=== PATIENT | male | born 1940 | race Caucasian/White ===

== ENCOUNTER → 2016-09-01 | Outpatient (CLI) | payer MEDICARE, OTHER ==
[~2016-09-01] MED LIST: ASPI-586 PO; CIPR500S2 PO; HYDR-3874 PO; LEVO200T PO; MULT-35 PO; OMEP20TA33 PO; PHEN-640 PO; TAMS0.4C98 PO; TRIA1TAB5 PO
--- NOTE | 2016-09-01 16:19 | Diagnostic Imaging Report ---
INDICATION: History of left ureteral stone, symptoms have resolved. FINDINGS: No opaque calculus along the expected course of the left ureter is found. A calcific like opacity projects over the left 12th rib measuring 4.6 mm which may be a parenchymal kidney stone. IMPRESSION: There is a questionable stone within the left kidney. No radiopaque ureteral stone or bowel obstruction. Dictated by: Dictated on workstation # [id number]
== END ==
LOC: RAD 14:22
PROVIDERS: ATTEND Urology
DX: N20.1 Calculus of ureter (principal)
CPT/HCPCS: 74000

== ENCOUNTER 2016-09-03 10:43 | Outpatient (CLI) | payer MEDICARE, OTHER ==
[~2016-09-03] VITALS: Ht 188 cm; Wt 95.3 kg
[2016-09-03] MEDS ORDERED: MULT-35 PO (10:53)
[2016-09-03] MEDS ORDERED: OMEP20TA33 PO (10:53)
[2016-09-03] MEDS ORDERED: ASPI-586 PO (10:53)
[2016-09-03] MEDS ORDERED: TRIA1TAB5 PO (10:53)
[2016-09-03] MEDS ORDERED: TAMS0.4C98 PO (10:53)
[2016-09-03] MEDS ORDERED: LEVO200T PO (10:53)
== END 2016-09-03 11:05 ==
LOC: PREOP 10:43
PROVIDERS: ATTEND Urology
DX: Z01.818 Encounter for other preprocedural examination (principal); N20.1 Calculus of ureter

== ENCOUNTER 2016-09-08 08:45 | Day surgery (SDC) | payer MEDICARE, OTHER ==
[~2016-09-08] VITALS: Ht 188 cm; Wt 95.3 kg
[~2016-09-08 08:45] MED LIST changes: -CIPR500S2 PO; -HYDR-3874 PO; -PHEN-640 PO
[2016-09-08] MEDS ORDERED: cefTRIAXone 1 GM (ROCEPHIN) VIAL ONE (08:52)
[2016-09-08] MEDS ORDERED: NS (IVPB) 50 ML ONE (08:53)
--- NOTE | 2016-09-08 09:19 | Diagnostic Imaging Report ---
EXAMINATION: KUB. INDICATION: Left ureteric stone. COMPARISON: 09/01/16. FINDINGS: There is a left calcification seen measuring 5 mm which could be within the left kidney. No definitive ureteric stone or right kidney stone seen. No bladder stone is identified. IMPRESSION: 5 mm left flank calcification could be a left kidney stone. Dictated by: Dictated on workstation # [id number]
[2016-09-08] MEDS ORDERED: CATHETER FLUSH 10 ML SYR IV PRN (09:30)
[2016-09-08] MEDS ORDERED: cefTRIAXone 1 GM/NS 50 ML IVPB IV ONE ×2 (09:30)
[2016-09-08 09:46] VITALS: BP 112/72
[2016-09-08] MEDS ORDERED: FAMOTIDINE 20MG/2ML IV (PEPCID) ONE (09:55)
[2016-09-08] MEDS ORDERED: fentaNYL INJECTION 100 MCG/2 ML AMP ONE (09:56)
[2016-09-08] MEDS ORDERED: ONDANSETRON 4 MG/2 ML (SDV) Z0FRAN ONE (09:57)
[2016-09-08] MEDS ORDERED: LIDOCAINE JELLY 2% (XYLOCAINE) 5 ML TUBE ONE (09:57)
[2016-09-08] MEDS ORDERED: proPOfol 200 MG/20 ML (DIPRIVAN) VIAL IV ONE ×2 (09:57→11:08)
[2016-09-08] MEDS ORDERED: ROCURONIUM 50 MG/5 ML (ZEMURON) VIAL IV ONE (09:57)
[2016-09-08] MEDS ORDERED: MIDAZOLAM 2 MG/2 ML (VERSED) VIAL ONE (09:57)
[2016-09-08] MEDS ORDERED: LIDOCAINE PF 2% 10 ML (XYLOCAINE) AMP ONE (09:57)
[2016-09-08] MEDS ORDERED: SEVOFLURANE (ULTANE) 15 ML INHAL SOLN ONE ×3 (09:57→11:09)
[2016-09-08] MEDS ORDERED: LACTATED RINGERS 1,000 ML IV ONE ×2 (09:57→11:09)
--- NOTE | 2016-09-08 10:00 | Progress Note-Pre Operative ---
Pre-Operative Progress Note H&P Reviewed The H&P was reviewed, patient examined and no changes noted. Date H&P Reviewed: September 08, 2016 Time H&P Reviewed: 10:00 Pre-Operative Diagnosis: LT URETERAL STONE RICK DELCID MD September 08, 2016 10:00 am
--- NOTE | 2016-09-08 10:01 | Progress Note-Post Operative ---
Post-Operative Progess Note Surgeon (s)/Production Broaching Machine Operator (s) Surgeon RICK DELCID MD Production Broaching Machine Operator: N/A Pre-Operative Diagnosis LT URETERAL STONE Post-Operative Diagnosis SAME Procedure & Operative Findings Date of Procedure 09/08/16 Procedure Preformed/Findings CYSTO, LT URETEROSCOPY, LT RETROGRADE UROGRAM Anesthesia Type GENERAL Estimated Blood Loss Estimated blood loss (mL): N/A Specimens/Packing Specimens Removed N/A Packing: N/A RICK DELCID MD September 08, 2016 10:01 am
--- NOTE | 2016-09-08 10:02 | Discharge Inst-Urology ---
Discharge Inst-Urology Discharge Medications New, Converted, or Re-newed RX: RX on Chart Patient Instructions/Follow Up Plan Please make appointment to been seen in office in 2 weeks. Increase oral fluids for 48 hours and then as needed. Diet and Activity as tolerated. If questions or concerns contact your physician Or seek help at emergency department. RICK DELCID MD September 08, 2016 10:02 am
[2016-09-08] MEDS: LACTATED RINGERS 1,000 ML IV PRN ×2 (10:03→11:47)
[2016-09-08] MEDS ORDERED: FAMOTIDINE 20MG/2ML IV (PEPCID) IV ONE (10:15)
--- NOTE | 2016-09-08 11:41 | OPERATIVE REPORT ---
DATE OF SERVICE: 09/08/2016 PREOPERATIVE DIAGNOSIS: Left ureteral stone. POSTOPERATIVE DIAGNOSES: 1. Left ureteral stone. 2. BPH. OPERATIONS PERFORMED: Cystoscopy, left ureteroscopy, attempted left ureteral catheterization and stenting, left retrograde urogram. SURGEON: Lizandro ANESTHESIA: General. COMPLICATIONS: None. PROCEDURE: Under satisfactory general anesthesia and the patient in lithotomy position, genitalia was prepped and draped in the usual sterile fashion. Cystoscope was introduced under direct vision. The anterior urethra was normal. The prostate revealed trilobar enlargement with a significant medial lobe projecting intravesically, causing the ureter to be pushed upward and laterally. There were trabeculations of the wall. No foreign body, bladder tumor or stone visualized. Using the foroblique lens, I attempted to dilate the left ureteral orifice and portion, but was unsuccessful. I attempted to pass a urethral cath and stent, I was unsuccessful. 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 I went ahead and put a cooled-tip urethral catheter at the orifice of the ureter, injected contrast. There was no filling defect and the contrast filled all the way to the kidney with good emptying of the system after removing the urethral catheter. There was no filling defect at all. 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 I, again, injected contrast with the same picture as before, meaning no filling defect and complete emptying of the system. I went ahead and inserted the cystoscope. There was some bloody urine. I elected to leave a 16-Slovak Ibarra catheter draining the bladder and decide later on on its removal. Job ID: [id number] DocumentID: [id number] Dictated Date: 09/08/2016 11:21:22 Sand Miller Date: 09/08/2016 11:41:17 Dictated By: RICK DELCID MD
[2016-09-08] MEDS ORDERED: ONDANSETRON 4 MG/2 ML (SDV) Z0FRAN IVP PRN (11:45)
[2016-09-08] MEDS ORDERED: MEPERIDINE (DEMEROL) INJ 50 MG/ML IVP PRN (11:45)
[2016-09-08] MEDS: morphine INJ 10 MG/ML 1ML (SYR OR VIAL) IVP PRN ×2 (11:46→11:58)
[2016-09-08 12:30] VITALS: BP 126/75
[2016-09-08] MEDS ORDERED: HYDR-3874 PO (12:58)
[2016-09-08] MEDS ORDERED: CIPR500S2 PO (12:58)
[2016-09-08] MEDS ORDERED: PHEN-640 PO (12:58)
[2016-09-08 13:00] VITALS: BP 122/77
[2016-09-08 13:30] VITALS: BP 121/75
[2016-09-08 14:05] VITALS: BP 121/75
== END 2016-09-08 14:05 | disposition home or self-care (01) ==
LOC: SDC 08:45
PROVIDERS: ATTEND Urology
DX: N20.1 Calculus of ureter (principal); N40.0 Benign prostatic hyperplasia without lower urinary tract symptoms; Q62.8 Other congenital malformations of ureter
CPT/HCPCS: 74000; 87081

== ENCOUNTER → 2017-08-05 | Outpatient (RCR) | payer MEDICARE, OTHER ==
[~2017-08-05] MED LIST changes: +CIPR500S2 PO; +HYDR-3870 PO; +PHEN-640 PO
== END | disposition home or self-care (01) ==
LOC: ONC 05-07 08:39
PROVIDERS: ATTEND Radiology Radiation Oncology
DX: Z51.0 Encounter for antineoplastic radiation therapy (principal); C61 Malignant neoplasm of prostate
CPT/HCPCS: 76873; 77290; 77300; 77301; 77332; 77336; 77338; 77385; 99215

== ENCOUNTER 2017-10-19 15:43 | Outpatient (RCR) | payer MEDICARE, OTHER | END 2017-11-04 | disposition home or self-care (01) | LOC: ONC 15:43 | PROVIDERS: ATTEND Radiology Radiation Oncology | DX: Z51.0 Encounter for antineoplastic radiation therapy (principal); C61 Malignant neoplasm of prostate | CPT/HCPCS: 77336; 77385; 99213 ==